=== PATIENT | male | born 1950 | race Caucasian/White ===

== ENCOUNTER 2016-12-15 05:06 | Emergency (ER) | payer MEDICARE, OTHER ==
[~2016-12-15] VITALS: Ht 175.3 cm; Wt 95.5 kg
[2016-12-15 05:14] VITALS: BP 137/82; PULSE 79; RESP 16; TEMP 98.4; O2SAT 98
[2016-12-15] MEDS ORDERED: ATOR40TA16 PO (05:20)
[2016-12-15] MEDS ORDERED: ASPI-146 PO (05:20)
[2016-12-15] MEDS ORDERED: ENAL5TAB PO (05:20)
[2016-12-15] MEDS ORDERED: METO25TA3 PO (05:20)
[2016-12-15] MEDS ORDERED: ZETI10TA5 PO (05:20)
--- NOTE | 2016-12-15 06:01 | PD ---
HPI Chief Complaint: Abdominal Pain Time Seen by Provider: 05:45 Travel History International Travel<30 days: No Contact w/Intl Traveler<30days: No Traveled to known affect area: No History of Present Illness HPI The patient is a 66-year-old male that complains of abdominal pain that began yesterday at noon. He felt a pop and then a sharp pain within an 8-9 inch area around an old incision for gallbladder but the pain is subsided and almost totally gone at this time. He denies any fever, nausea or vomiting. He felt some distention in the abdomen around the old gallbladder surgical scar. The gallbladder surgical scar is a lraasd-rjcti-rgod incision that goes all the way to the lower abdomen. The patient is from [place] and plans to return in several days to [place]. He states he still has his appendix. PFSH Past Medical History Arthritis: Yes Cardiac Catheterization: Yes (1990) High Cholesterol: Yes Chest Pain: Yes Coronary Artery Disease: Yes GERD: Yes Herniated Disk: Yes (LUMBAR) Hypertension: Yes Medical other: Yes (ABDOMINAL POST SURGICAL ABSCESSES: I+D WITH DRAINS: FEBRUARY 2016) Triglycerides - High: Yes Tetanus Vaccination: > 5 Years Influenza Vaccination: No Past Surgical History Abdominal Surgery: Yes (MASS ON GALLBLADDER, PARTIAL REMOVAL OF LIVER AND COLON : NOV 2015) Coronary Stent: Yes (X2) Tonsillectomy: Yes Other Surgery: Yes Social History Alcohol Use: Yes ("A COUPLE OF BEERS PER DAY") Tobacco Use: No (QUIT 1979) Substance Use: No Allergies-Medications (Allergen,Severity, Reaction): Coded Allergies: No Known Allergies (Unverified , 12/15/16) Reported Meds & Prescriptions Reported Meds & Active Scripts Active Reported Ecotrin Regular Strength (Aspirin) 325 Mg Tabdr 325 Mg PO HS Zetia (Ezetimibe) 10 Mg Tab 5 Mg PO HS Atorvastatin (Atorvastatin Calcium) 40 Mg Tab 40 Mg PO HS Enalapril (Enalapril Maleate) 5 Mg Tab 5 Mg PO DAILY Metoprolol Tartrate 25 Mg Tab 25 Mg PO DAILY Review of Systems Except as stated in HPI: all other systems reviewed are Neg Physical Exam Narrative GENERAL: The patient is alert, oriented 3 in minimal distress with his abdominal discomfort. His vital signs are normal. SKIN: Warm and dry. HEAD: Atraumatic. Normocephalic. EYES: Pupils equal and round. No scleral icterus. No injection or drainage. ENT: No nasal bleeding or discharge. Mucous membranes pink and moist. NECK: Trachea midline. No JVD. CARDIOVASCULAR: Regular rate and rhythm. No murmur appreciated. RESPIRATORY: No accessory muscle use. Clear to auscultation. Breath sounds equal bilaterally. GASTROINTESTINAL: Abdomen soft, with minimal discomfort on the lower portion of the surgical scar on the right lower/mid abdomen, nondistended. Hepatic and splenic margins not palpable. When the patient stands up there is an incisional hernia that protrudes out. No guarding or rebound is present. MUSCULOSKELETAL: No obvious deformities. No clubbing. No cyanosis. No edema. NEUROLOGICAL: Awake and alert. No obvious cranial nerve deficits. Motor grossly within normal limits. Normal speech. PSYCHIATRIC: Appropriate mood and affect; insight and judgment normal. Data Data Last Documented VS Vital Signs Date Time Temp Pulse Resp B/P Pulse Ox O2 Delivery O2 Flow Rate FiO2 12/15/16 05:14 98.4 79 16 137/82 98 Room Air [facility] Medical Decision Making Medical Screen Exam Complete: Yes Emergency Medical Condition: Yes Medical Record Reviewed: Yes Differential Diagnosis Incisional hernia, abdominal pain etiology undetermined, abscess formation Narrative Course The patient has abdominal pain etiology undetermined. The pain is lessening and is almost totally gone at this time. He has only minimal tenderness along the scar in the abdomen where he felt the "pop". At this time I feel the patient would be better served if he can wait until he gets to [place] to have a more extensive workup there. At this time he appears to have minimal pain, the pain is improving and the chances of this being a significant problem are very low. The patient agrees to come back to the emergency department if he develops a fever or severe pain in the abdomen. Diagnosis Primary Impression: Abdominal pain of unknown etiology Med/Other Pt SpecificInfo: No Change to Meds Disposition: 01 DISCHARGE HOME Condition: Stable Dagoberto Scott MD Dec 15, 2016 06:01
[2016-12-15] MEDS ORDERED: KETOROLAC TROMETHAMINE 60 MG/2 ML (IM) VIAL IVP ONE (06:15)
== END 2016-12-15 06:22 | disposition home or self-care (01) ==
LOC: PHED 05:06
DX: R10.32 Left lower quadrant pain (principal); I10 Essential (primary) hypertension; I25.10 Atherosclerotic heart disease of native coronary artery without angina pectoris; E78.2 Mixed hyperlipidemia
CPT/HCPCS: 96374; 99283; J1885